=== PATIENT | male | born 1980 | race Caucasian/White ===

== ENCOUNTER 2016-04-10 17:44 | Emergency (ER) | payer OTHER ==
[~2016-04-10] VITALS: Ht 172.7 cm; Wt 63.5 kg
[2016-04-10 17:58] VITALS: BP 118/65
[2016-04-10] MEDS ORDERED: BACITRACIN OINT 500 UNITS/GM PKT TP ONE (18:10)
[2016-04-10] MEDS ORDERED: cefTRIAXone 1,000 MG in LIDOCAINE 1% ED 2.1 ML IM ONE (18:10)
[2016-04-10] MEDS ORDERED: KETOROLAC 60 MG/2 ML VIAL IM ONE (18:10)
--- NOTE | 2016-04-10 18:36 | NUR ---
PATIENT PRESENTS TO ED WITH RIGHT HAND SWELLING DUE TO BUG BITE . PT STATES RIGHT HAND AND FOREARM PAIN FOR TWO DAYS . DENIES N/V/D; SKIN IS PINK/WARM/DRY; AAOX4 WITH EVEN AND STEADY GAIT; PT DENIES ANY FEVER, CP, SOB, OR COUGH AT THIS TIME; PATIENT STATES PAIN OF 9/10 AT THIS TIME; VSS; PATIENT POSITIONED FOR COMFORT; HOB ELEVATED; BEDRAILS UP X1; BED DOWN. PA MADE AWARE OF PT STATUS.
--- NOTE | 2016-04-10 18:39 | NUR ---
PETRA SZYMANSKI HAS SEEN PT.
[2016-04-10 19:02] VITALS: BP 118/65
--- NOTE | 2016-04-10 19:04 | NUR ---
Patient discharged with v/s stable. Written and verbal after care instructions given and explained. Patient alert, oriented and verbalized understanding of instructions. Ambulatory with steady gait. All questions addressed prior to discharge. ID band removed. Patient advised to follow up with PMD. Rx of KEFLEX, IBUPROFEN,BACTRIM given. Patient educated on indication of medication including possible reaction and side effects. Opportunity to ask questions provided and answered.
== END 2016-04-10 19:04 | disposition home or self-care (01) ==
LOC: MED 17:44
DX: L02.511 Cutaneous abscess of right hand (principal); L03.113 Cellulitis of right upper limb
CPT/HCPCS: 96372; 99284; J0696; J1885; J2001